=== PATIENT | female | born 1965 | race Caucasian/White ===

== ENCOUNTER → 2021-12-14 10:18 | Outpatient (CLI) | payer BC, SELFPAY ==
[2021-12-14 16:32] LABS: Adenovirus,PCR Not Detected (NotDetected); Bordetella Pertussis Not Detected (NotDetected); Chlamydophila Pneumoniae, PCR Not Detected (NotDetected); Coronavirus 229E Not Detected (NotDetected); Coronavirus NL63 Not Detected (NotDetected); Coronavirus OC43 Not Detected (NotDetected); Coronovirus HKU1,PCR Not Detected (NotDetected); Human Metapneumovirus Not Detected (NotDetected); Influenza A, PCR Not Detected (NotDetected); Influenza AH1, 2009 Not Detected (NotDetected); Influenza AH1, PCR Not Detected (NotDetected); Influenza AH3,PCR Not Detected (NotDetected); Influenza B, PCR Not Detected (NotDetected); Mycoplasma Pneumoniae, PCR Not Detected (NotDetected); Parainfluenza 1, PCR Not Detected (NotDetected); Parainfluenza 2, PCR Not Detected (NotDetected); Parainfluenza 3, PCR Not Detected (NotDetected); Parainfluenza 4, PCR Not Detected (NotDetected); Respiratory Syncytial Virus Not Detected (NotDetected); Rhinovirus/Enterovirus Not Detected (NotDetected)
[2021-12-14 16:36] LABS: Eosinophils # 0.1 K/mm3 (0.0-0.4); Eosinophils % 1.5 % (0.1-12.0); Hematocrit 35.3 % (37.0-47.0); Hemoglobin 11.9 g/dL (12.2-16.2); Lymphocytes # 1.5 K/mm3 (0.7-4.5); Lymphocytes % 39.7 % (10-50); Mean Corpuscular HGB Conc 33.7 g/dL (31.8-35.4); Mean Corpuscular Volume 92.2 fl (81-99); Mean Platelet Volume 8.4 fl (7.4-10.4); Monocytes # 0.7 K/mm3 (0.1-1.0); Monocytes % 19.4 % (1.7-9.3); Neutrophils # 1.4 K/mm3 (1.8-7.8); Neutrophils % 38.3 % (37.0-80.0); Platelet Count 365 K/mm3 (142-424); Red Blood Count 3.83 M/mm3 (4.20-5.40); White Blood Count 3.7 K/mm3 (4.8-10.8)
[2021-12-14 22:00] LABS: Coronavirus 19, PCR Detected (NotDetected)
== END ==
PROVIDERS: PCP Family Medicine; Visit Provider Physician Assistant
DX: U07.1 COVID-19 (principal)
CPT/HCPCS: 36415; 85025; 87581; 87632; 87798; C9803; U0003; U0005

== ENCOUNTER 2022-03-03 16:49 | Emergency (ER) | payer BC, SELFPAY ==
[2022-03-03 16:58] VITALS: BMI 29.0
--- NOTE | 2022-03-03 16:58 | CT_ITS ---
PROCEDURE INFORMATION: Exam: CT Head Without Contrast Exam date and time: 03/03/2022 5:01 PM Age: 56 years old Clinical indication: Dizziness and syncope and collapse and weakness, extremity; Bilateral; Additional info: R/O stroke, weakness and syncope TECHNIQUE: Imaging protocol: Computed tomography of the head without contrast. Radiation optimization: All CT scans at this facility use at least one of these dose optimization techniques: automated exposure control; mA and/or kV adjustment per patient size (includes targeted exams where dose is matched to clinical indication); or iterative reconstruction. COMPARISON: No relevant prior studies available. FINDINGS: Brain: Normal. No hemorrhage. Unremarkable white matter. No mass effect. Cerebral ventricles: No ventriculomegaly. Paranasal sinuses: Visualized sinuses are unremarkable. No fluid levels. Mastoid air cells: Visualized mastoid air cells are well aerated. Bones/joints: Unremarkable. No acute fracture. Soft tissues: Unremarkable. IMPRESSION: No acute intracranial abnormality.
--- NOTE | 2022-03-03 16:59 | ECG_ITS ---
APPROVED REPORT Exam: Resting ECG HR:81 bpm ECG Measurements Heart Rate 81 AXES MI 189 P 68 QRSd 103 QRS 54 QT 376 T 69 QTc 413 Conclusion SINUS RHYTHM NONSPECIFIC T-WAVE ABNORMALITY BORDERLINE ECG UNCONFIRMED REPORT Electronically signed by : Beni Bonds MD 03/04/2022 08:13:41
--- NOTE | 2022-03-03 16:59 | XR_ITS ---
PROCEDURE INFORMATION: Exam: XR Chest Exam date and time: 03/03/2022 5:05 PM Age: 56 years old Clinical indication: Other: Syncope, weakness; Additional info: Near syncope TECHNIQUE: Imaging protocol: XR of the chest. Views: 1 view. COMPARISON: No relevant prior studies available. FINDINGS: Airway: Patent Lungs: Unremarkable. No consolidation. Pleural spaces: Unremarkable. No pleural effusion. No pneumothorax. Heart/Mediastinum: Unremarkable. No cardiomegaly. Bones/joints: No acute skeletal abnormality or aggressive osseous lesion. IMPRESSION: No acute findings.
[2022-03-03 17:02] VITALS: BP 127/79; PULSE 80; RESP 18; TEMP 36.9; O2SAT 98; BMI 33.1
--- NOTE | 2022-03-03 17:08 | HMH.EDGENADL ---
ED Disposition Clinical Impression: Syncope Qualifiers: Syncope type: unspecified Qualified Code(s): R55 - Syncope and collapse Disposition: Home, Self-Care Condition on Discharge: Fair Instructions: DI for Syncope in Adults (Fainting) Additional Instructions: You have been evaluated for syncopal episode. We have recommended admission for observation tonight. You have decided you are unable to stay in the hospital. Please wear a cardiac event monitor. Follow-up with Dr. Jensen as soon as available. Please return to the emergency department at once for any new or worsening symptoms, chest pain, palpitations, headache, numbness, weakness, seizure-like activity or any other concerns Referrals: Poncho Jensen MD [Primary Care Provider] - Time of Disposition: 18:29 - Critical Care Critical Care Time: No Attestation: On 03/03/22, the high probability of a clinically significant, sudden or life threatening deterioration of the following system(s) required my full and direct attention, intervention and personal management. The time I documented below is in addition to time spent performing reported procedures but includes the following listed in this critical care notation. Medical Decision Making - Medical Records Medical records reviewed: Yes: I reviewed the patient's medical records. - Surya Inquiry Pt receiving controlled substance: No Vital Signs: 03/03/22 17:02 03/03/22 17:19 03/03/22 17:31 Temperature 98.5 F Temperature Source Oral Pulse Rate 73 78 Pulse Rate [Left Radial] 80 Respiratory Rate 18 18 16 Blood Pressure 136/72 130/69 Blood Pressure [Right Arm] 127/79 Blood Pressure Mean 93 91 Blood Pressure Mean [Right Arm] 95 02 Sat by Pulse Oximetry 98 98 98 03/03/22 18:00 Temperature Temperature Source Pulse Rate 76 Pulse Rate [Left Radial] Respiratory Rate 16 Blood Pressure 131/71 Blood Pressure [Right Arm] Blood Pressure Mean 81 Blood Pressure Mean [Right Arm] 02 Sat by Pulse Oximetry 98 - Lab Data Lab Results 03/03/22 17:14: WBC 10.7, RBC 4.14 L, Hgb 12.8, Hct 37.7, MCV 91.1, MCH 31.0, MCHC 34.0, RDW 12.9, Plt Count 429 H, MPV 7.3 L, Neut % (Auto) 73.0, Lymph % (Auto) 20.3, [place] % (Auto) 5.4, Eos % (Auto) 0.6, Baso % (Auto) 0.7, Neut # (Auto) 7.8, Lymph # (Auto) 2.2, [place] # (Auto) 0.6, Eos # (Auto) 0.1, Baso # (Auto) 0.1 03/03/22 17:14: PT 11.7, INR 1.04, APTT 22.2 L 03/03/22 17:14: Sodium 138, Potassium 3.5, Chloride 102, Carbon Dioxide 31 H, Anion Gap 8.5, BUN 18 H, Creatinine 0.90, Estimated Creat Clear 95, Estimated GFR 65, Est GFR ( Amer) 78, Glucose 132 H, Calcium 8.7, Phosphorus 4.7 H, Magnesium 1.8, Total Bilirubin 0.5, AST 33, ALT 23, Alkaline Phosphatase 80, Troponin I < 0.01, Total Protein 6.6, Albumin 4.2, Globulin 2.4, Albumin/Globulin Ratio 1.8, TSH 0.97 Result diagrams: 03/03/22 17:14 03/03/22 17:14 Orders (Tests/Meds): ORDERS Category Date Time Status Troponin I Q3H Lab 03/03/22 20:00 Ordered Troponin I Q3H Lab 03/03/22 23:00 Ordered Urinalysis and Microscopic Stat Lab 03/03/22 16:59 Ordered ECG Request by /Brit Stat Y 03/03/22 16:59 Ordered Holter Monitor Req by Brit/ Stat Y 03/03/22 19:00 Ordered - ECG Data Tracing #1 Sinus rhythm with ventricular rate of 81 bpm. QRS 103, QTc 413. ST segment flattening in V5, V6. No ST segment elevations. Medical Decision Narrative: In summary this is a 56-year-old female presenting to the emergency department after syncopal episode. Patient clinically stable on arrival. Vital signs within normal limits. Will obtain CBC, CMP, chest x-ray, EKG, troponin profile, noncontrasted head CT Initial laboratory results are reassuring. No leukocytosis. No anemia. Electrolytes and glucose are within normal limits. EKG shows sinus rhythm without evidence of arrhythmia Troponin is undetectable Noncontrast head CT shows no intracranial bleed Assessment, patient say
[2022-03-03 17:19] VITALS: BP 136/72; PULSE 73; RESP 18; O2SAT 98
[2022-03-03 17:21] LABS: Basophils # 0.1 K/mm3 (0-0.2); Basophils % 0.7 % (0.1-2.0); Eosinophils # 0.1 K/mm3 (0.0-0.4); Eosinophils % 0.6 % (0.1-12.0); Hematocrit 37.7 % (37.0-47.0); Hemoglobin 12.8 g/dL (12.2-16.2); Lymphocytes # 2.2 K/mm3 (0.7-4.5); Lymphocytes % 20.3 % (10-50); Mean Corpuscular Volume 91.1 fl (81-99); Mean Platelet Volume 7.3 fl (7.4-10.4); Monocytes # 0.6 K/mm3 (0.1-1.0); Monocytes % 5.4 % (1.7-9.3); Neutrophils # 7.8 K/mm3 (1.8-7.8); Platelet Count 429 K/mm3 (142-424); Red Blood Count 4.14 M/mm3 (4.20-5.40); Red Cell Distribution Width 12.9 % (11.5-17.5); White Blood Count 10.7 K/mm3 (4.8-10.8)
[2022-03-03 17:31] VITALS: BP 130/69; PULSE 78; RESP 16; O2SAT 98
[2022-03-03 17:43] LABS: Chloride 102 mmol/L (98-107); Potassium 3.5 mmoL/L (3.5-5.1); Sodium 138 mmol/L (136-145)
[2022-03-03 17:45] LABS: Alanine Aminotransferase 23 U/L (12-78); Aspartate Amino Transferase 33 U/L (14-36); Blood Urea Nitrogen 18 mg/dl (7-17); Creatinine Clearance Estimated 95 mL/min (50-200); Estimated Glomerular Filt Rate 65 ml/min (>60); GFR (African American) 78 ML/MIN (>60)
[2022-03-03 17:46] LABS: Activated Partial Thrombo Time 22.2 seconds (22.8-30.6); Albumin Level 4.2 g/dl (3.5-5.0); Albumin/Globulin Ratio 1.8 (1.1-1.8); Alkaline Phosphatase 80 U/L (38-126); Anion Gap 8.5 mEq/L (5-15); Bilirubin,Total 0.5 mg/dl (0.2-1.3); Calcium 8.7 mg/dl (8.4-10.2); Carbon Dioxide 31 mmol/L (22.0-30.0); Globulin 2.4 g/dL (1.3-3.2); Glucose 132 mg/dl (74-100); INR 1.04 (0.9-1.1); Magnesium 1.8 mg/dl (1.6-2.3); Phosphorous 4.7 mg/dl (2.5-4.5); Prothrombin Time 11.7 seconds (10.1-12.5); Total Protein,Serum 6.6 g/dl (6.3-8.2)
[2022-03-03 18:00] VITALS: BP 131/71; PULSE 76; RESP 16; O2SAT 98
[2022-03-03 18:05] LABS: Troponin I < 0.01 ng/ml (0.00-0.034)
[2022-03-03 18:18] LABS: Thyroid Stimulating Hormone 0.97 uIU/mL (0.465-4.68)
--- NOTE | 2022-03-03 18:58 | PC.NURSE ---
MD Michaela speaking with MD Nadeen at this time
--- NOTE | 2022-03-03 19:00 | PC.NURSE ---
Rt contacted for holter monitor.
[2022-03-03 20:09] LABS: Troponin I < 0.01 ng/ml (0.00-0.034)
[2022-03-03 21:27] VITALS: BP 137/73; PULSE 77; RESP 16; TEMP 36.6; O2SAT 97
== END 2022-03-03 21:28 | disposition home or self-care (01) ==
PROVIDERS: Emergency Provider Emergency Medicine; PCP Family Medicine
DX: R55 Syncope and collapse (principal); R00.0 Tachycardia, unspecified; Z79.890 Hormone replacement therapy; Z79.899 Other long term (current) drug therapy
CPT/HCPCS: 36415; 70450; 71045; 80053; 83735; 84100; 84443; 84484; 85025; 85610; 85730; 93005; 93225; 93226; 99285

== ENCOUNTER → 2022-08-02 15:55 | Outpatient (CLI) | payer BC, SELFPAY ==
--- NOTE | 2022-08-02 15:59 | XR_ITS ---
FINAL REPORT CLINICAL HISTORY: PAIN IN LEFT FOOT FINDINGS: LEFT FOOT Three views of the left foot demonstrate no acute fracture or dislocation. The visualized joint spaces are normally aligned. The soft tissues are unremarkable. IMPRESSION: No acute bony abnormality. Reviewed, Interpreted and Dictated by Ever Johnson III, MD Transcribed by Marin Bill Authenticated and [facility]
== END ==
PROVIDERS: PCP Family Medicine; Visit Provider Family Medicine
DX: M79.672 Pain in left foot (principal)
CPT/HCPCS: 73630

== ENCOUNTER → 2022-08-27 08:41 | Outpatient (CLI) | payer BC, SELFPAY ==
--- NOTE | 2022-08-27 08:47 | XR_ITS ---
FINAL REPORT CLINICAL HISTORY: stress reaction, pain, swelling, x several mos, no known injury FINDINGS: LEFT FOOT Three views of the left foot demonstrate no acute fracture or dislocation. The visualized joint spaces are normally aligned. The joint spaces are preserved. The soft tissues are unremarkable. IMPRESSION: No acute bony abnormality. Reviewed, Interpreted and Dictated by Radhika Malhotra MD Transcribed by Emilia Smith Authenticated and [facility]
== END ==
PROVIDERS: PCP Family Medicine; Visit Provider Podiatrist
DX: M79.672 Pain in left foot (principal); S93.402A Sprain of unspecified ligament of left ankle, initial encounter
CPT/HCPCS: 73630

== ENCOUNTER → 2022-12-17 17:10 | Outpatient (CLI) | payer BC, SELFPAY ==
--- NOTE | 2022-12-17 17:12 | MM_ITS ---
PROCEDURE INFORMATION: Exam: Bilateral Screening 3D Mammography Exam date and time: 12/17/2022 5:04 PM Age: 57 years old Clinical indication: Screening mammogram TECHNIQUE: Imaging protocol: Bilateral Screening tomosynthesis and 2D mammography including computer-aided detection (CAD) when performed. COMPARISON: No relevant prior studies available. FINDINGS: MAMMOGRAPHY: Breast composition: There are scattered areas of fibroglandular density. Mass: 0.6 cm mass within the lower inner anterior left breast should be further assessed with spot views in CC/MLO projection. Ultrasound should also be performed. Architectural distortion: No new or suspicious architectural distortion. Calcifications: No new or suspicious calcifications are present Asymmetric density: No new or suspicious asymmetric density is present Skin thickening: None. Axillary adenopathy: None. IMPRESSION: Every attempt should be made to retrieve prior images. If prior images can be made available, an addendum will be provided. If there are is no significant interval change, annual mammographic screening will be recommended. If for whatever reason prior films cannot be retrieved within 2 weeks, the patient will be recalled for the followin.6 cm mass within the lower inner anterior left breast should be further assessed with spot views in CC/MLO projection. Ultrasound should also be performed. ASSESSMENT: BI-RADS category 0: Incomplete-need additional imaging evaluation
== END ==
PROVIDERS: PCP Family Medicine; Visit Provider Family Medicine
DX: Z12.31 Encounter for screening mammogram for malignant neoplasm of breast (principal)
CPT/HCPCS: 77063; 77067

== ENCOUNTER → 2023-01-30 14:30 | Outpatient (CLI) | payer BC, SELFPAY ==
--- NOTE | 2023-01-30 14:33 | MM_ITS ---
PROCEDURE INFORMATION: Exam: US Left Breast, Complete MG Left Diagnostic Breast Tomosynthesis Exam date and time: 01/30/2023 2:30 PM Age: 57 years old Clinical indication: Patient recalled on the basis of a screening mammogram for further evaluation; Left breast; mass TECHNIQUE: Imaging protocol: Complete ultrasound of all four quadrants of the left breast and the retroareolar regions, including ultrasound of the axilla when performed. Left Diagnostic tomosynthesis and 2D mammography including computer-aided detection (CAD) when performed. Unilateral or bilateral exam. COMPARISON: MG MM DIG SCREENING MAMM BI W/CAD 12/17/2022 5:04 PM FINDINGS: MAMMOGRAPHY: Digital diagnostic spot compression views of the anterior left lower inner quadrant demonstrate a persistent 0.6 cm mass without associated architectural distortion. ULTRASOUND: Sonographic images of the left breast including the retroareolar region, all 4 quadrants and the axilla do not demonstrate any suspicious solid masses. Two benign subcutaneous subcentimeter lipomas have been incidentally documented. 0.4 cm cyst in the left 7 o'clock axis most closely corresponds to the mass on mammography. No architectural distortion or acoustical shadowing. No skin thickening or axillary adenopathy. IMPRESSION: Mass on screening mammography corresponds to underlying cystic change sonographically. There is no mammographic evidence of malignancy.Annual bilateral mammographic screening is recommended unless otherwise clinically indicated. ASSESSMENT: BI-RADS Category 2: Benign
== END ==
PROVIDERS: PCP Family Medicine; Visit Provider Nurse Practitioner Family
DX: R92.8 Other abnormal and inconclusive findings on diagnostic imaging of breast (principal)
CPT/HCPCS: 76641; 77061; 77065; G0279

== ENCOUNTER 2023-09-14 14:04 | Emergency (ER) | payer BC, SELFPAY ==
[2023-09-14 14:25] VITALS: BP 150/77; PULSE 77; RESP 20; TEMP 36.8; O2SAT 98; BMI 31.9
[2023-09-14 14:32] LABS: Microscopic, Urine URINE MICROSCOPIC (MICROSCOPIC)
[2023-09-14 14:40] LABS: Appearance,Urine CLEAR (Clear); Bilirubin,Urine Negative (Negative); Blood, Urine 1+ (Negative); Color,Urine YELLOW (Yellow); Glucose,Urine (UA) Negative (Negative); Ketones,Urine 1+ (Negative); Leukocyte Esterase,Urine 1+ (Negative); Nitrate,Urine Negative (Negative); Protein,Urine Negative (Negative); Specific Gravity, Urine >= 1.030 (1.005-1.030); Urobilinogen,Urine 0.2 EU/dl (0.2)
--- NOTE | 2023-09-14 14:47 | EXP.UTC ---
Discharge Plan Disposition Patient Disposition: Home, Self-Care Condition: Good Prescriptions Prescriptions: New nitrofurantoin monohyd/m-cryst [Macrobid] 100 mg capsule 100 mg PO Q12H 7 Days Qty: 14 0RF Rx Instructions: must administer with a meal/food phenazopyridine [Pyridium] 200 mg tablet 200 mg PO Q8H 2 Days Qty: 6 0RF No Action lisinopril-hydrochlorothiazide 20-25 mg tablet 1 tab PO DAILY omeprazole magnesium [Prilosec OTC] 20 mg Tablet,Delayed Release (Dr/Ec) 20 mg PO DAILY Referrals Follow up/Referrals: Poncho Jensen MD [Primary Care Provider] - See instructions Activity Restrictions/Add. Instructions Additional Instructions/Restrictions: *Increase fluids. Water not Soda or Tea *Start antibiotic immediately and be sure to take as ordered for the FULL length of time although you should start to see improvement over the next 48 hours *Pyridium as needed Remember this medication will turn your urine . This is normal but it will stain what ever it gets on *You should not use Pyridium for more than 48 hours. If so , follow up with your primary physician to review urine culture and ensure that antibiotic is adequate for infection *Be SURE to follow up anytime for new or worsening symptoms with your family doctor. AND in 48 hours for urine culture results with your family doctor, if you do not have a doctor then you may call back to the [facility] for urine culture results and further treatment. We do recommend that you choose and establish care with a Primary Care Physician. ?AND follow up with them ?in 10-14 days to repeat UA to ensure infection is resolved and blood no longer present *Be sure to let your PCP know that we sent urine cultures from the [facility] so they can follow up to ensure that you area the on the correct antibiotic Call your doctor office and make appointment for 48 hours (2 days from today) ?to follow up and get the results of your urine culture and further treatment Clinical Impressions Clinical Impression: UTI (urinary tract infection) Qualifiers: Urinary tract infection type: site unspecified Hematuria presence: with hematuria Qualified Code(s): N39.0 - Urinary tract infection, site not specified Instructions Patient Instructions: Urinary Tract Infection, DI for Urinary Tract Infection (UTI) Discharge ED Provider: Emely Oleary [facility] [place] General Stated complaint: possible UTI Mode of Arrival: Ambulatory Source of Information: Patient Limitations: No Limitations Time Seen by Provider: 09/14/23 14:47 Description of Symptoms (Recalled from Triage Doc. by RN): PATIENT C/O LOWER BACK PAIN AND FEELING LIKE SHE HAS TO URINATE FREQUENTLY SINCE YESTERDAY HEENT Symptoms (Recalled from RN notes): No Resp Symptoms (Recalled from RN notes): No Skin Symptoms (Recalled from RN notes): No MS Symptoms (Recalled from RN notes): No Functional Status (Recalled from RN notes): WNL History of Present Illness Provider Complaint: Patient states that she started yesterday with achy like feeling in her lower back and urinary urgency and frequency States that this is exactly how it started about a month ago when she had a UTI and she wanted to come in and get it checked before it got too bad Related Data Home Medications Medication Instructions Recorded Confirmed lisinopril 20 1 tab PO DAILY Hypertension 08/27/22 09/14/23 mg-hydrochlorothiazide 25 mg tablet omeprazole magnesium 20 mg 20 mg PO DAILY GERD 09/14/23 09/14/23 tablet,delayed release (Prilosec OTC) Previous Rx's Medication Instructions Recorded nitrofurantoin 100 mg PO Q12H 7 days #14 caps 09/14/23 monohydrate/macrocrystals 100 mg capsule (Macrobid) phenazopyridine 200 mg tablet 200 mg PO Q8H pain 2 days #6 tabs 09/14/23 (Pyridium) Allergies Allergy/AdvReac Type Severity Reaction Status Date / Time No Known Allergies Allergy Verified 09/17/22 09:07 Worker's Comp Is this a Worker'
[2023-09-14 15:00] VITALS: BP 150/77; PULSE 77; RESP 20; TEMP 36.8; O2SAT 98
[2023-09-14 15:10] LABS: RBC,Urine Occasional #/hpf (0-3); Squamous Epithelial Cell,Urine Occasional #/hpf (0-5)
== END 2023-09-14 15:02 | disposition home or self-care (01) ==
PROVIDERS: Emergency Provider Nurse Practitioner; PCP Family Medicine
DX: N39.0 Urinary tract infection, site not specified (principal); B96.1 Klebsiella pneumoniae [K. pneumoniae] as the cause of diseases classified elsewhere; R31.9 Hematuria, unspecified; M54.59 Other low back pain; K21.9 Gastro-esophageal reflux disease without esophagitis; I10 Essential (primary) hypertension
CPT/HCPCS: 81001; 87086; 99204; 99212; G0463

== ENCOUNTER 2024-11-15 15:43 | Outpatient (CLI) | payer BC, SELFPAY ==
--- NOTE | 2024-11-15 15:45 | MM_ITS ---
PROCEDURE INFORMATION: Exam: MG Bilateral Screening 3D Mammography Exam date and time: 11/15/2024 3:43 PM Age: 58 years old Clinical indication: Screening. No family history of breast cancer. TECHNIQUE: Imaging protocol: Bilateral Screening tomosynthesis and 2D mammography including computer-aided detection (CAD) when performed. COMPARISON: 1. MG MM DIG MAMM DX UNILAT LT CAD 01/30/2023 2:30 PM 2. MG MM DIG SCREENING MAMM BI W/CAD 12/17/2022 5:04 PM 3. US BREAST LT COMPLETE 01/30/2023 3:29 PM FINDINGS: MAMMOGRAPHY: Breast composition: There are scattered areas of fibroglandular density. Mass: No suspicious mass. Architectural distortion: None. Calcifications: No suspicious calcifications. Asymmetric density: None. Skin thickening: None. Axillary adenopathy: None. IMPRESSION: No mammographic evidence of malignancy. Annual screening is recommended unless otherwise clinically indicated. ASSESSMENT: BI-RADS Category 1: Negative.
== END 2024-11-15 23:59 | disposition home or self-care (01) ==
LOC: RAD 15:43
PROVIDERS: PCP Family Medicine; Visit Provider Family Medicine
DX: Z12.31 Encounter for screening mammogram for malignant neoplasm of breast (principal)
CPT/HCPCS: 77063; 77067